=== PATIENT | male | born 2000 | race Caucasian/White ===

== ENCOUNTER 2023-05-22 02:39 | Emergency (ER) | payer SELFPAY ==
[2023-05-22 02:40] VITALS: BP 148/59; PULSE 120; RESP 35; TEMP 36.6; O2SAT 95; BMI 17.6
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
--- NOTE | 2023-05-22 02:48 | ECG_ITS ---
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 Measurements Intervals [place] Rate: 114 P: 80 HI: 92 QRS: 81 QRSD: 89 T: 74 QT: 361 QTc: 498 Interpretive Statements SINUS TACHYCARDIA WITH SHORT HI INTERVAL POSSIBLE RIGHT ATRIAL ENLARGEMENT [0.25mV P-WAVE] POSSIBLE LEFT ATRIAL ENLARGEMENT [-0.1mV P-WAVE IN V1/V2] ST DEPRESSION, CONSIDER SUBENDOCARDIAL INJURY [0.1+ mV ST DEPRESSION] No previous ECG available for comparison Electronically Signed On 05-22-2023 11:19:53 CDT by Myron Wade M.D. [id number]
[2023-05-22 02:53] LABS: Basophils # 0.1 10^3/uL (0.0-0.1); Basophils % 0.3 %; Eosinophils % 0.1 %; Hematocrit 43.2 % (37-53); Lymphocytes # 3.3 10^3/uL (0.8-4.8); Lymphocytes % 11.8 %; Mean Corpuscular HGB Conc 32.6 g/dL (30-55); Mean Corpuscular Hemoglobin 31.8 pg (27-33); Mean Corpuscular Volume 97.5 fl (82-101); Mean Platelet Volume 9.2 fL (7.4-10.4); Monocytes # 1.9 10^3/uL (0.2-0.9); Monocytes % 6.7 %; Neutrophils # 22.55 10^3/uL (1.8-7.7); Neutrophils % 79.5 %; Nucleated Red Blood Cells % 0.1 %; Platelet Count 294 10^3/cmm (157-399); Red Blood Count 4.43 10^6/uL (3.85-5.65); Red Cell Distribution Width 12.6 % (12.1-15.1); White Blood Count 28.32 10^3/uL (3.29-11.43)
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
[2023-05-22 03:07] LABS: INR 1.18 (0.8-1.2)
[2023-05-22] MEDS: fentaNYL 50 mcg/mL INJ 2mL 100 MCG IVP (03:10)
[2023-05-22] MEDS: sodium chloride 0.9% 1,000 ML 999 ML IV (03:12)
[2023-05-22 03:14] LABS: Protein Urine 3+ (Negative); Urine Appearance Cloudy (CLEAR); Urine Color Red (Yellow); pH Urine 5 (5-7)
[2023-05-22 03:15] LABS: Add Urine Microscopic? YES; Bacteria Urine 1+ /hpf; Bilirubin Urine Neg (Negative); Blood Urine 3+ (Negative); Glucose Urine UA 2+ (Normal); Ketones Urine 1+ (Negative); Leukocyte Esterase Urine Trace (Negative); Mucus Urine 2+ /hpf; Nitrate Urine Negative (Negative); RBC Urine 50-80 /hpf (0-2); Urobilinogen Urine Neg (Negative); WBC Urine 0-4 /hpf (0-5)
[2023-05-22 03:16] LABS: Alanine Aminotransferase 155 U/L (0-41); Albumin Level 4.8 g/dL (3.5-5.2); Alkaline Phosphatase 64 U/L (40-130); Aspartate Amino Transferase 233 U/L (0-40); Blood Urea Nitrogen 12 mg/dL (6-20); Calcium 8.8 mg/dL (8.5-10.5); Carbon Dioxide 20 mmol/L (22-29); Chloride 107 mmol/L (98-107); Globulin 1.9 g/dL (1.3-4.6); Glomerular Filtration Rate 82.2 mL/min (90-130); Glucose 214 mg/dL (65-115); Osmolality Calculated 304 mOsm/kg (285-295); Sodium 144 mmol/L (136-145); Total Bilirubin 0.5 mg/dL (0.15-1.2); Total Protein 6.7 g/dL (6.6-8.7)
[2023-05-22 03:16] LABS: Fine Granular Casts Urine 0-4 /lpf
[2023-05-22 03:17] LABS: Add Urine Culture? Yes
[2023-05-22 03:18] LABS: Anion Gap 19.5 (5-19)
[2023-05-22 03:18] LABS: Amphetamines Screen Urine Negative (Negative); Barbiturates Screen Urine Negative (Negative); Benzodiazepines Screen Urine Negative (Negative); Cocaine Screen Urine Negative (Negative); Opiate Screen Urine Negative (Negative); PCP Screen Urine Negative (Negative); THC Screen Urine Positive (Negative)
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
[2023-05-22 03:23] LABS: Lipase 80 U/L (13-60); Potassium 2.5 mmol/L (3.5-5.1)
[2023-05-22 03:35] VITALS: BP 113/72; PULSE 90; RESP 20; O2SAT 95
[2023-05-22 03:38] LABS: Alcohol Level 133 mg/dL (0-10)
[2023-05-22 03:48] VITALS: BP 114/76; PULSE 118; RESP 24; O2SAT 94
[2023-05-22] MEDS: ondansetron 2 mg/ML SDV 2 mL 8 MG IVP (04:12)
[2023-05-22 04:14] VITALS: BP 114/76; PULSE 118; RESP 24; TEMP 36.6; O2SAT 94
== END 2023-05-22 04:07 ==
PROVIDERS: Emergency Provider Emergency Medicine
DX: Z04.1 Encounter for examination and observation following transport accident (principal); J93.9 Pneumothorax, unspecified; J90 Pleural effusion, not elsewhere classified; S27.321A Contusion of lung, unilateral, initial encounter; S42.115A Nondisplaced fracture of body of scapula, left shoulder, initial encounter for closed fracture; S42.001A Fracture of unspecified part of right clavicle, initial encounter for closed fracture; S42.002A Fracture of unspecified part of left clavicle, initial encounter for closed fracture; S22.32XA Fracture of one rib, left side, initial encounter for closed fracture; S22.059A Unspecified fracture of T5-T6 vertebra, initial encounter for closed fracture; S22.069A Unspecified fracture of T7-T8 vertebra, initial encounter for closed fracture; S22.079A Unspecified fracture of T9-T10 vertebra, initial encounter for closed fracture; S22.41XA Multiple fractures of ribs, right side, initial encounter for closed fracture; S30.0XXA Contusion of lower back and pelvis, initial encounter; S32.591A Other specified fracture of right pubis, initial encounter for closed fracture; S32.491A Other specified fracture of right acetabulum, initial encounter for closed fracture; S32.391A Other fracture of right ilium, initial encounter for closed fracture; V89.2XXA Person injured in unspecified motor-vehicle accident, traffic, initial encounter
CPT/HCPCS: 70450; 71250; 72125; 74176; 80053; 80306; 80307; 81001; 83690; 85025; 85610; 86850; 86900; 87086; 93005; 96361; 96374; 96375; 99285; J2405; J3010; J7030